=== PATIENT | male | born 1945 | race Asian ===

== ENCOUNTER 2020-05-04 06:06 | Day surgery (SDC) | payer OTHER ==
[~2020-05-04] VITALS: Ht 172.7 cm; Wt 63.6 kg
[~2020-05-04 06:06] MED LIST: SODIUM CHLORIDE 0.9% 1,000 ML IV ONE; SODIUM CHLORIDE 0.9% 1,000 ML ONE
[2020-05-04] MEDS ORDERED: HYDR-2924 PO (06:37)
[2020-05-04] MEDS ORDERED: FLUC200T PO (06:37)
[2020-05-04] MEDS ORDERED: LOSA50TA37 PO (06:37)
[2020-05-04] MEDS ORDERED: HYDR-1475 PO (06:37)
[2020-05-04] MEDS ORDERED: ATOR20TA86 PO (06:37)
[2020-05-04] MEDS ORDERED: FentaNYL CITRATE-PF 100 MCG/2 ML VIAL ONE (07:54)
[2020-05-04] MEDS ORDERED: MIDAZOLAM HCL 2 MG/2 ML VIAL ONE (07:54)
[2020-05-04] MEDS ORDERED: MethylPREDNISolone SOD SUCC 125 MG/2 ML VIAL IVP ONE (08:45)
[2020-05-04] MEDS ORDERED: GLYCOPYRROLATE 0.2 MG/ML VIAL ONE (16:31)
[2020-05-04] MEDS ORDERED: LIDOCAINE 2% 5 ML JELLY ONE (16:31)
[2020-05-04] MEDS ORDERED: LIDOCAINE 4% 50 ML SOLUTION ONE (16:31)
[2020-05-04] MEDS ORDERED: ALBUTEROL SULFATE 2.5 MG/0.5 ML NEB SOLUTION NEB ONE (16:31)
[2020-05-04] MEDS ORDERED: LIDOCAINE 2% 30 ML JELLY ONE (16:31)
[2020-05-04] MEDS ORDERED: OXYGEN THERAPY IH SCH (20:00)
== END 2020-05-04 10:05 | disposition home or self-care (01) ==
LOC: SURGERY 06:06
PROVIDERS: ATTEND Internal Medicine Critical Care Medicine
DX: R05 Cough (principal); R91.1 Solitary pulmonary nodule; J34.89 Other specified disorders of nose and nasal sinuses; J98.8 Other specified respiratory disorders; J38.4 Edema of larynx; B37.0 Candidal stomatitis; I10 Essential (primary) hypertension; E78.00 Pure hypercholesterolemia, unspecified; Z20.828 Contact with and (suspected) exposure to other viral communicable diseases
CPT/HCPCS: 31623; 31624; 71045; 87015; 87070; 87101; 87205; 87206; 87220; 87635; 88108; 88312; J2250; J2930; J3010; J3490; J7030; J7613; Z7610